=== PATIENT | female | born 1970 | race African-American/Black ===

== ENCOUNTER → 2018-03-27 08:31 | Outpatient (CLI) | payer MEDICAID | END | disposition home or self-care (01) | LOC: D.MRI 08:30 | DX: M25.512 Pain in left shoulder (principal) ==

== ENCOUNTER 2018-10-07 05:34 | Outpatient (CLI) | payer MEDICAID ==
[~2018-10-07] VITALS: Ht 167.6 cm; Wt 103.2 kg
[2018-10-07 06:11] LABS: BASOPHILS 0.3 % (0-2); EOSINOPHILS 0.8 % (0-7); HEMATOCRIT 37.7 % (36.0-48.0); HEMOGLOBIN 13.1 g/dL (12-16); IMMATURE GRANULOCYTES 0.3 % (0-5); LYMPHOCYTES 20.8 % (15-50); MCH 33.9 pg (26.0-34.0); MCHC 34.7 g/dL (31.0-37.0); MCV 97.7 fL (80.0-100.0); MEAN PLATELET VOLUME 11.4 fL (7.4-10.4); MONOCYTES 4.6 % (2-11); NEUTROPHILS 73.2 % (40-80); PLATELET COUNT 105 10x3/uL (130-400); RBC 3.86 10x6/uL (4.00-5.40); RDW 15.6 % (11.5-14.5); WBC 7.6 10x3/uL (4.8-10.8)
[2018-10-07] MEDS ORDERED: ZOLOFT100 MG PO (06:14)
[2018-10-07] MEDS ORDERED: ABILIFY2 MG PO (06:14)
[2018-10-07] MEDS ORDERED: DULCOLAX5 MG PO (06:15)
[2018-10-07] MEDS ORDERED: ZANAFLEX4 MG PO (06:15)
[2018-10-07] MEDS ORDERED: CYMBALTA60 MG PO (06:16)
[2018-10-07] MEDS ORDERED: GLUCOPHAGE500 MG PO (06:16)
[2018-10-07] MEDS ORDERED: GLYBURIDE5 M1 PO (06:17)
[2018-10-07] MEDS ORDERED: METHOTREXATE2.5 MG PO (06:18)
[2018-10-07] MEDS ORDERED: ALBUTEROL SULF8.5 GM INH (06:20)
[2018-10-07 06:23] LABS: ALBUMIN 2.9 g/dL (3.4-5.0); BILIRUBIN - DIRECT 0.34 mg/dL (0.00-0.30); BILIRUBIN - INDIRECT 0.57 mg/dL (0.00-1.00); BILIRUBIN - TOTAL 0.91 mg/dL (0.2-1.3); CHOL - HDL RATIO 2.8 ratio (2.3-4.1); LDL-HDL RATIO 1.5 ratio (1.5-3.5); PROTEIN - SERUM 7.5 g/dL (6.4-8.2)
[2018-10-07 06:28] VITALS: BP 122/74; Ht 167.6 cm; Wt 103.2 kg
[2018-10-07 06:34] LABS: % SATURATION 50 % (15-55); IRON 137 ug/dl (35-150); TOTAL IRON BIND CAPACITY 270 ug/dl (260-445); UNSAT IRON BIND CAPACITY 133 ug/dl (150-375)
[2018-10-07 06:58] LABS: HCG URINE NEGATIVE (NEGATIVE)
[2018-10-07 07:11] LABS: INR 1.37 (0.85-1.17); PROTIME 16.3 SECONDS (11.6-15.0)
[2018-10-07 07:12] LABS: APTT 33.9 SECONDS (22.8-39.4)
[2018-10-07 07:32] LABS: ANION GAP 15.6 mmol/L (8-16); CALCIUM 8.4 mg/dL (8.5-10.1); CARBON DIOXIDE 23.4 mmol/L (21.0-32.0); CREATININE - SERUM 0.9 mg/dL (0.6-1.3)
--- NOTE | 2018-10-07 09:14 | NUR ---
0910 RETURNED TO 2508 BY STRETCHER. SEE POST PROCEDURE CHECKLIST FOR VITAL SIGN TRENDS
--- NOTE | 2018-10-07 09:25 | NUR ---
0920 ADA FINGER FOOD DIET SERVED.
--- NOTE | 2018-10-07 13:06 | NUR ---
PT LEFT UNIT AT THIS TIME VIA WC.
[2018-10-08 09:21] LABS: HAPTOGLOBIN 58 mg/dL (34-200)
[2018-10-08 11:22] LABS: ALPHA FETOPROTEIN -(TUMOR MRK) 8.4 ng/mL (0.0-8.3)
[2018-10-08 14:30] LABS: ANA REFLEX - ANTICHROMATIN ABS <0.2 AI (0.0-0.9); ANA REFLEX - CENTROMERE B ABS <0.2 AI (0.0-0.9); ANA REFLEX - DBL STRANDED DNA <1 IU/mL (0-9); ANA REFLEX - DIRECT Positive (Negative); ANA REFLEX - JO-1 AB <0.2 AI (0.0-0.9); ANA REFLEX - RNP ANTIBODIES <0.2 AI (0.0-0.9); ANA REFLEX - SCL-70 2.6 AI (0.0-0.9); ANA REFLEX - SJOGRENS AB SSA <0.2 AI (0.0-0.9); ANA REFLEX - SJOGRENS AB SSB <0.2 AI (0.0-0.9); ANA REFLEX - SMITH AB <0.2 AI (0.0-0.9)
[2018-10-09 12:20] LABS: MITOCHONDRIAL ANTIBODY 17.2 Units (0.0-20.0); SMOOTH MUSCLE ABS (ACTIN) 35 Units (0-19)
== END 2018-10-07 13:06 | disposition home or self-care (01) ==
LOC: D.SP 05:34 → D.CT 08:00 → D.SP 13:06
PROVIDERS: Internal Medicine Gastroenterology; Specialist
DX: K74.60 Unspecified cirrhosis of liver (principal); Z01.812 Encounter for preprocedural laboratory examination

== ENCOUNTER → 2019-06-08 10:31 | Outpatient (CLI) | payer MEDICAID ==
[2018-10-07 06:28] VITALS: BMI 36.7
[~2019-06-08 10:31] MED LIST: ABILIFY2 MG PO; ALBUTEROL SULF8.5 GM INH; CYMBALTA60 MG PO; DULCOLAX5 MG PO; GLUCOPHAGE500 MG PO; GLYBURIDE5 M1 PO; METHOTREXATE2.5 MG PO; ZANAFLEX4 MG PO; ZOLOFT100 MG PO
[2019-06-08 11:52] LABS: BASOPHILS 0.3 % (0-2); EOSINOPHILS 3.3 % (0-7); HEMATOCRIT 34.9 % (36.0-48.0); HEMOGLOBIN 12.2 g/dL (12-16); IMMATURE GRANULOCYTES 0.2 % (0-5); LYMPHOCYTES 26.9 % (15-50); MCH 32.6 pg (26.0-34.0); MCV 93.3 fL (80.0-100.0); MEAN PLATELET VOLUME 10.4 fL (7.4-10.4); MONOCYTES 6.6 % (2-11); NEUTROPHILS 62.7 % (40-80); PLATELET COUNT 97 10x3/uL (130-400); RBC 3.74 10x6/uL (4.00-5.40); RDW 14.6 % (11.5-14.5); WBC 6.1 10x3/uL (4.8-10.8)
[2019-06-08 12:04] LABS: INR 1.22 (0.85-1.17); PROTIME 14.9 SECONDS (11.6-15.0)
[2019-06-08 12:12] LABS: PLATELET ESTIMATE DECREASED
[2019-06-08 12:27] LABS: ALBUMIN 2.9 g/dL (3.4-5.0); BILIRUBIN - DIRECT 0.15 mg/dL (0.00-0.30); BILIRUBIN - INDIRECT 0.36 mg/dL (0.00-1.00); BILIRUBIN - TOTAL 0.51 mg/dL (0.2-1.3); PROTEIN - SERUM 7.5 g/dL (6.4-8.2)
[2019-06-09 14:09] LABS: ALPHA FETOPROTEIN -(TUMOR MRK) 4.6 ng/mL (0.0-8.3)
== END | disposition home or self-care (01) ==
LOC: D.LAB 10:31 → D.US 11:00
PROVIDERS: ATTEND Internal Medicine Gastroenterology
DX: K74.60 Unspecified cirrhosis of liver (principal)

== ENCOUNTER 2019-09-02 13:50 | Inpatient (IN) | payer MEDICAID ==
[~2019-09-02] VITALS: Ht 167.6 cm; Wt 95.9 kg
--- NOTE | 2019-09-02 14:17 | NUR ---
RECEIVED PATIENT A DIRECT ADMIT. NO C/O PAIN. NO S/S OF ACUTE DISTRESS NOTED. VITALS T98.2, R22, BP144/83, HR60, [id number]% 3L, NC. IV TO LEFT HAND, SL. SITE PATENT 22GA, X1 STICK. DENIES ANY NEEDS AT THIS TIME. CALL LIGHT IN REACH. WILL CONTINUE TO MONITOR.
[2019-09-02 15:35] LABS: BASOPHILS 0.1 % (0-2); EOSINOPHILS 1.2 % (0-7); HEMATOCRIT 32.9 % (36.0-48.0); HEMOGLOBIN 11.2 g/dL (12-16); IMMATURE GRANULOCYTES 0.1 % (0-5); LYMPHOCYTES 23.6 % (15-50); MCH 32.5 pg (26.0-34.0); MCV 95.4 fL (80.0-100.0); MEAN PLATELET VOLUME 10.1 fL (7.4-10.4); MONOCYTES 6.5 % (2-11); NEUTROPHILS 68.5 % (40-80); PLATELET COUNT 113 10x3/uL (130-400); RBC 3.45 10x6/uL (4.00-5.40); RDW 14.1 % (11.5-14.5); WBC 6.8 10x3/uL (4.8-10.8)
[2019-09-02 15:48] LABS: ANION GAP 8.6 mmol/L (8-16); CALCIUM 8.9 mg/dL (8.5-10.1); CARBON DIOXIDE 28.1 mmol/L (21.0-32.0); CREATININE - SERUM 1.3 mg/dL (0.6-1.3); POTASSIUM - SERUM 3.7 mmol/L (3.5-5.1)
[2019-09-02 15:52] LABS: APTT 31.7 SECONDS (22.8-39.4); INR 1.28 (0.85-1.17); PROTIME 15.4 SECONDS (11.6-15.0)
[2019-09-02 15:56] LABS: ALBUMIN 2.7 g/dL (3.4-5.0); BILIRUBIN - TOTAL 0.76 mg/dL (0.2-1.3); PROTEIN - SERUM 7.3 g/dL (6.4-8.2)
[2019-09-02 16:36] VITALS: BP 144/83
[2019-09-02 17:25] LABS: UDS - AMPHET POSITIVE QUAL (NEGATIVE); UDS - BARB NEGATIVE QUAL (NEGATIVE); UDS - BENZO NEGATIVE QUAL (NEGATIVE); UDS - COCAINE NEGATIVE QUAL (NEGATIVE); UDS - OPIATE NEGATIVE QUAL (NEGATIVE); UDS - PCP NEGATIVE QUAL (NEGATIVE); UDS - THC POSITIVE QUAL (NEGATIVE)
--- NOTE | 2019-09-02 18:49 | NUR ---
ALERT AND ORIENTED. DENIES ANY NEEDS AT THIS TIME. CALL LIGHT IN REACH. WILL CONTINUE TO MONITOR.
[2019-09-02 20:01] VITALS: BP 144/83; Ht 167.6 cm; Wt 95.9 kg
[2019-09-02 21:00] VITALS: BP 154/49
--- NOTE | 2019-09-02 21:05 | NUR ---
LYING IN BED. ALERT AND ORIENTED X4. SLOW TO RESPOND TO QUESTIONS. [place]. RESP EVEN AND NONLABORED. SOB WITH EXERTION. O2 @ 3L/NC. BREATH SOUNDS DIMINISHED IN RT LOBES. DENIES PAIN. NONPROD COUGH NOTED. SORES NOTED ALL OVER ARMS. SALINE LOCK NOTED TO LT HAND. AMBULATORY. NO DISTRESS. CL IN REACH.
--- NOTE | 2019-09-02 23:00 | NUR ---
INDIA SHOWER AT THIS TIME.
[2019-09-03] VITALS (7 sets, daily range): BP systolic 122–163; BP diastolic 44–68
[2019-09-03 07:06] LABS: ANION GAP 10.4 mmol/L (8-16); CALCIUM 8.6 mg/dL (8.5-10.1); CARBON DIOXIDE 27.5 mmol/L (21.0-32.0); CREATININE - SERUM 1.3 mg/dL (0.6-1.3); POTASSIUM - SERUM 3.9 mmol/L (3.5-5.1)
[2019-09-03 07:25] LABS: BASOPHILS 0.2 % (0-2); EOSINOPHILS 1.3 % (0-7); HEMATOCRIT 32.3 % (36.0-48.0); HEMOGLOBIN 10.7 g/dL (12-16); IMMATURE GRANULOCYTES 0.2 % (0-5); LYMPHOCYTES 26.7 % (15-50); MCHC 33.1 g/dL (31.0-37.0); MCV 96.7 fL (80.0-100.0); MEAN PLATELET VOLUME 10.7 fL (7.4-10.4); NEUTROPHILS 63.6 % (40-80); PLATELET COUNT 120 10x3/uL (130-400); RBC 3.34 10x6/uL (4.00-5.40); RDW 14.4 % (11.5-14.5); WBC 5.3 10x3/uL (4.8-10.8)
--- NOTE | 2019-09-03 07:41 | NUR ---
PT IS RESTING IN BED WITH EYES OPEN. RESPIRATIONS ARE EVEN AND UNLABORED. PT IS AAO X 4. FAMILY IS AT BEDSIDE. PT DENIES PRESENCE OF N/V. PT REPORTS DIFFICULTY TAKING DEEP BREATHS. LUNG SOUNDS DIMINISHED TO RLL. O2 VIA NC @ 2L. BED IS IN THE LOWEST POSITION. CALL LIGHT AND BEDSIDE TABLE ARE WITHIN REACH. SIDE RAILS X 2. PT DENIES FURTHER NEEDS. WILL CONT TO MONITOR.
--- NOTE | 2019-09-03 08:31 | NUR ---
PT TRANSPORTED OFF FLOOR VIA BED FOR PROCEDURE.
[2019-09-03 08:45] LABS: APTT 34.4 SECONDS (22.8-39.4); INR 1.27 (0.85-1.17); PROTIME 15.3 SECONDS (11.6-15.0)
--- NOTE | 2019-09-03 09:45 | NUR ---
PT RETURNS TO ROOM VIA BED. PT IS AAO X 4. DRESSING TO RIGHT SIDE IS CDI. VSS. SEE FLOWSHEET. FAMILY IS AT BEDSIDE. PT DENIES PRESENCE OF PAIN/N/V. BED IS IN THE LOWEST POSITION. CALL LIGHT AND BEDSIDE TABLE ARE WITHIN REACH. SIDE RAILS X 2. PT DENIES FURTHER NEEDS. WILL CONT TO MONITOR.
[2019-09-03 11:59] LABS: PROTEIN - BODY FLUID 1.5 G/DL
[2019-09-03 13:32] LABS: EOS BF 1 %; MACROPHAGES BF 20 %; MESOTHELIALS BF 11 %; NEUT - BF 38 %
--- NOTE | 2019-09-03 20:05 | NUR ---
LYING IN BED. ALERT AND ORIENTED X4. DENIES PAIN. RESP NONLABORED. STATES SHE FEELS BETTER AFTER THORACENTESIS. O2 @ 3L/NC. BBS CTA BUT SLIGHTLY DIMINISHED IN RT LOBES. [place]. SALINE LOCK NOTED TO LT HAND. NONPROD COUGH. NO DISTRESS. CL IN REACH.
[2019-09-04 00:16] VITALS: BP 132/59
--- NOTE | 2019-09-04 02:42 | NUR ---
RESTING WITH EYES CLOSED. RESP EVEN AND NONLABORED. NO DISTRESS. CL IN REACH.
[2019-09-04 05:07] VITALS: BP 138/49
[2019-09-04 05:58] LABS: BASOPHILS 0.2 % (0-2); EOSINOPHILS 1.3 % (0-7); HEMATOCRIT 30.8 % (36.0-48.0); HEMOGLOBIN 10.4 g/dL (12-16); IMMATURE GRANULOCYTES 0.2 % (0-5); LYMPHOCYTES 24.6 % (15-50); MCH 32.3 pg (26.0-34.0); MCHC 33.8 g/dL (31.0-37.0); MCV 95.7 fL (80.0-100.0); MONOCYTES 6.1 % (2-11); NEUTROPHILS 67.6 % (40-80); PLATELET COUNT 111 10x3/uL (130-400); RBC 3.22 10x6/uL (4.00-5.40); RDW 13.9 % (11.5-14.5); WBC 5.3 10x3/uL (4.8-10.8)
[2019-09-04 06:34] LABS: CALCIUM 8.1 mg/dL (8.5-10.1); CARBON DIOXIDE 27.8 mmol/L (21.0-32.0); CREATININE - SERUM 1.4 mg/dL (0.6-1.3); POTASSIUM - SERUM 3.8 mmol/L (3.5-5.1)
[2019-09-04 08:46] VITALS: BP 157/687
[2019-09-04 12:45] VITALS: BP 135/81
[2019-09-04] MEDS ORDERED: PLAQUENIL PO (14:11)
--- NOTE | 2019-09-04 14:34 | MORECARE ---
CASE MANAGEMENT DISCHARGE SUMMARY PATIENT: DEBBIE FIERRO UNIT: [id number] ADM DATE: 09/02/19 AGE: 49 : 68 SEX: F ROOM/BED: D.2225 AUTHOR: BETTINA ALTMAN PHYSICIAN: REFERRING PHYSICIAN: SLIM IQBAL MD DATE OF SERVICE: 09/04/19 Discharge Plan Patient Name: DEBBIE FIERRO Facility: [facility]:[place] : 1970 Planned Disposition: Home Anticipated Discharge Date: Discharge Date: Expected LOS: Initial Reviewer: [email or web address] Initial Review Date: 09/04/2019 Generated: 09/04/19 3:34 pm Comments DCP- Discharge Planning Updated by [email or web address]: Rsoalie Gold on 09/04/19 1:[address] Patient Name: DEBBIE FIERRO Admission Status: Elective Accout number: [id number] Admission Date: 09-02-2019 : 1970 Admission Diagnosis: Attending: SLIM ZARAGOZA Current LOS: 2 Anticipated DC Date: Planned Disposition: Home Primary Insurance: [place] [employer] [place] Discharge Planning Comments: CM met with patient at bedside after explaining CM role and obtaining verbal consent. CM discussed availability / needs of home health, REHAB and medical equipment. PATIENT DENIES ANY DISCHARGE NEEDS. FAMILY IS HERE TO TRANSPORT HOME. Rock Star: Rosalie Gold Patient Name: DEBBIE FIERRO Page [phone] at 1434 All edits/amendments must be made on the electronic document DICTATION DATE: 09/04/19 1433 VELVET CUTTER: DOV 09/04/19 1433 RPT#: [id number] DC DATE: STATUS: ADM IN [facility] [address] [place] [address] END OF REPORT
--- NOTE | 2019-09-04 15:25 | NUR ---
PATIENT IV REMOVED WITH CATH TIP INTACT. WAITING TO GO HOME. WAITING ON PULMONARY TO CALL BACK FOR ORDERS.
--- NOTE | 2019-09-04 15:30 | NUR ---
SPOKE WITH ROSIE BAILEY ABOUT PATIENT BEING DC'D. PATIENT WANTING TO GO AND UNABLE TO GET PULMONARY TO CALL BACK. ROSIE STATED OK TO GO AT THIS TIME.
--- NOTE | 2019-09-04 15:50 | NUR ---
PATIENT RECIEVED DC INSTRUCTIONS. VERBALIZED UNDERSTANDING. CALLED SHAHRIARL INTO [facility] [address] REQUESTED BY PATIENT. NO QUESTIONS AT THIS TIME. AMBULATED OUT OF HOSPITAL WITH PERSONAL BELONGINGS ASSISTED BY FAMILY. REFUSED WC AT THIS TIME.
--- NOTE | 2019-09-05 16:25 | MORECARE ---
CASE MANAGEMENT DISCHARGE SUMMARY PATIENT: DEBBIE FIERRO UNIT: [id number] ADM DATE: 09/02/19 AGE: 49 : 68 SEX: F ROOM/BED: D.2225 AUTHOR: BETTINA ALTMAN PHYSICIAN: REFERRING PHYSICIAN: SLIM IQBAL MD DATE OF SERVICE: 09/05/19 Discharge Plan Patient Name: DEBBIE FIERRO Facility: [facility]:[place] : 1970 Planned Disposition: Home Anticipated Discharge Date: Discharge Date: 09/04/2019 Expected LOS: Initial Reviewer: [email or web address] Initial Review Date: 09/04/2019 Generated: 09/05/19 5:24 pm Comments DCP- Discharge Planning Updated by [email or web address]: Rosalie Gold on 09/04/19 1:[address] Patient Name: DEBBIE FIERRO Admission Status: Elective Accout number: [id number] Admission Date: 09-02-2019 : 1970 Admission Diagnosis: Attending: SLIM ZARAGOZA Current LOS: 2 Anticipated DC Date: Planned Disposition: Home Primary Insurance: [place] [employer] [place] Discharge Planning Comments: CM met with patient at bedside after explaining CM role and obtaining verbal consent. CM discussed availability / needs of home health, REHAB and medical equipment. PATIENT DENIES ANY DISCHARGE NEEDS. FAMILY IS HERE TO TRANSPORT HOME. Natural Gas Basis Trader: Rosalie Curiel DP export: 09/04/19 1:34 p Patient Name: DEBBIE FIERRO Page [phone] at 1625 All edits/amendments must be made on the electronic document DICTATION DATE: 09/05/191623 PARCEL POST CLERK: DOV 09/05/191623 RPT#: [id number] DC DATE:09/04/19 STATUS: DIS IN [facility] [address] [facility] [place] [address] END OF REPORT
== END 2019-09-04 16:09 | disposition home or self-care (01) | DRG 186 ==
LOC: D.MS 13:50
PROVIDERS: General Practice; Internal Medicine Nephrology; ADMIT Family Medicine; ATTEND Family Medicine
PROC: 0W993ZZ Drainage of Right Pleural Cavity, Percutaneous Approach (ICD-10-PCS; principal; 2019-09-03 08:51)
DX: J90 Pleural effusion, not elsewhere classified (principal); J18.1 Lobar pneumonia, unspecified organism; E11.9 Type 2 diabetes mellitus without complications; I10 Essential (primary) hypertension; F41.8 Other specified anxiety disorders; F12.10 Cannabis abuse, uncomplicated; Z72.0 Tobacco use; M06.9 Rheumatoid arthritis, unspecified; F15.19 Other stimulant abuse with unspecified stimulant-induced disorder

== ENCOUNTER 2019-09-14 13:07 | Inpatient (IN) | payer MEDICAID ==
[~2019-09-14] VITALS: Ht 167.6 cm; Wt 92.1 kg
[~2019-09-14 13:07] MED LIST changes: +PLAQUENIL PO
[2019-09-14 15:28] LABS: BASOPHILS 0.1 % (0-2); EOSINOPHILS 0.7 % (0-7); HEMATOCRIT 36.2 % (36.0-48.0); IMMATURE GRANULOCYTES 0.1 % (0-5); LYMPHOCYTES 16.6 % (15-50); MCH 32.4 pg (26.0-34.0); MCHC 33.1 g/dL (31.0-37.0); MCV 97.8 fL (80.0-100.0); MEAN PLATELET VOLUME 10.5 fL (7.4-10.4); MONOCYTES 7.6 % (2-11); NEUTROPHILS 74.9 % (40-80); RDW 13.9 % (11.5-14.5); WBC 7.4 10x3/uL (4.8-10.8)
[2019-09-14 15:35] LABS: PLATELET COUNT 143 10x3/uL (130-400)
--- NOTE | 2019-09-14 15:47 | NUR ---
PATIENT DIRECT ADMIT FROM DR HERNANDEZ OFFICE WITH LARGE PLEURAL EFFUSION. DECREASED BREATH SOUNDS TO RIGHT. PATIENT ADMITTED EARLIER THIS MONTH TO SAME DIAGNOSIS. IV STARTED TO RIGHT FOREARM 20G X 1 STICK. PATIENT TOLERATED WELL.
[2019-09-14 15:48] LABS: APTT 32.8 SECONDS (22.8-39.4); INR 1.31 (0.85-1.17); PROTIME 15.7 SECONDS (11.6-15.0)
[2019-09-14 15:53] VITALS: BP 145/74; BMI 32.8
[2019-09-14 16:12] LABS: ALBUMIN 2.7 g/dL (3.4-5.0); ANION GAP 11.9 mmol/L (8-16); BILIRUBIN - TOTAL 0.98 mg/dL (0.2-1.3); CALCIUM 8.5 mg/dL (8.5-10.1); CARBON DIOXIDE 25.1 mmol/L (21.0-32.0); CREATININE - SERUM 1.6 mg/dL (0.6-1.3); PROTEIN - SERUM 7.2 g/dL (6.4-8.2)
[2019-09-14 16:27] VITALS: BP 145/74
[2019-09-14 19:10] LABS: UDS - AMPHET POSITIVE QUAL (NEGATIVE); UDS - BARB NEGATIVE QUAL (NEGATIVE); UDS - BENZO NEGATIVE QUAL (NEGATIVE); UDS - COCAINE NEGATIVE QUAL (NEGATIVE); UDS - OPIATE NEGATIVE QUAL (NEGATIVE); UDS - PCP NEGATIVE QUAL (NEGATIVE); UDS - THC POSITIVE QUAL (NEGATIVE)
[2019-09-14 19:29] LABS: APPEARANCE CLEAR (CLEAR); BILIRUBIN NEGATIVE (NEGATIVE); COLOR YELLOW (YELLOW); GLUCOSE 250 mg/dL (NEGATIVE); KETONE NEGATIVE (NEGATIVE); NITRITE NEGATIVE (NEGATIVE); PROTEIN 1+ mg/dL (NEGATIVE); SPECIFIC GRAVITY 1.025 (1.005-1.020); UROBILINOGEN NORMAL (NORMAL)
[2019-09-14 19:30] LABS: RED CELLS - URINE 0-5 /hpf (0-5); WHITE CELLS - URINE 0-5 /hpf (NEGATIVE)
[2019-09-14 19:31] LABS: BACTERIA MODERATE /hpf (NEGATIVE); MUCUS <1+ /lpf (NONE SEEN)
--- NOTE | 2019-09-14 20:30 | NUR ---
PT SITTING UP IN BED WITHOUT DISTRESS, AOX4. DENIES PAIN OR NEEDS. IV RIGHT FA SL, FLUSHES EASILY. REMINDED PT SHE IS NPO AFTER MN, VERBALIZED UNDERSTANDING. BS 216, REFUSED INSULIN. CL IN REACH, WILL CTM
[2019-09-14 20:40] VITALS: BP 156/72
[2019-09-15] VITALS (7 sets, daily range): BP systolic 129–146; BP diastolic 58–80; Ht 167.6 cm; Wt 92.1 kg
[2019-09-15 06:36] LABS: BASOPHILS 0.2 % (0-2); EOSINOPHILS 1.6 % (0-7); HEMOGLOBIN 12.2 g/dL (12-16); IMMATURE GRANULOCYTES 0.1 % (0-5); LYMPHOCYTES 31.7 % (15-50); MCH 32.4 pg (26.0-34.0); MCHC 33.9 g/dL (31.0-37.0); MEAN PLATELET VOLUME 10.3 fL (7.4-10.4); MONOCYTES 6.7 % (2-11); NEUTROPHILS 59.7 % (40-80); PLATELET COUNT 158 10x3/uL (130-400); RBC 3.76 10x6/uL (4.00-5.40); RDW 13.8 % (11.5-14.5); WBC 8.2 10x3/uL (4.8-10.8)
[2019-09-15 06:48] LABS: ANION GAP 10.8 mmol/L (8-16); CALCIUM 8.5 mg/dL (8.5-10.1); CREATININE - SERUM 1.4 mg/dL (0.6-1.3); POTASSIUM - SERUM 3.8 mmol/L (3.5-5.1)
[2019-09-15 06:57] LABS: APTT 31.3 SECONDS (22.8-39.4); INR 1.26 (0.85-1.17); PROTIME 15.3 SECONDS (11.6-15.0)
[2019-09-15 07:01] LABS: MCV 95.7 fL (80.0-100.0)
--- NOTE | 2019-09-15 07:58 | NUR ---
PT IS RESTING IN BED WITH EYES OPEN. RESPIRATIONS ARE EVEN AND UNLABORED. PT IS AAO X 4. FAMILY AT BEDSIDE. PT DENIES PRESENCE OF PAIN/N/V AT THIS TIME. PT DENIES PRESENCE OF DYSPNEA. BED IS IN THE LOWEST POSITION. CALL LIGHT AND BEDSIDE TABLE ARE WITHIN REACH. SIDE RAILS X 2. PT DENIES FURTHER NEEDS. WILL CONT TO MONITOR.
--- NOTE | 2019-09-15 08:27 | NUR ---
PT TRANSPORTED FROM ROOM VIA BED FOR PROCEDURE.
--- NOTE | 2019-09-15 09:33 | NUR ---
PT RETURNS TO ROOM VIA BED. FAMILY IS AT BEDSIDE. PT IS AAO X 4. VSS. SEE FLOWSHEET. PT DENIES PRESENCE OF PAIN/N/V/DYSPNEA. PT STATES THAT SHE FEELS "MUCH BETTER". PT DENIES FURTHER NEEDS. BED IS IN THE LOWEST POSITION. CALL LIGHT AND BEDSIDE TABLE ARE WITHIN REACH. SIDE RAILS X 2. WILL CONT TO MONITOR.
[2019-09-15 15:41] LABS: PROTEIN - BODY FLUID 1.1 G/DL
--- NOTE | 2019-09-15 16:47 | MORECARE ---
CASE MANAGEMENT DISCHARGE SUMMARY PATIENT: DEBBIE FIERRO UNIT: [id number] ADM DATE: 09/14/19 AGE: 49 : 68 SEX: F ROOM/BED: D.[facility]6 AUTHOR: BETTINA ALTMAN PHYSICIAN: REFERRING PHYSICIAN: REGLA BAKER MD DATE OF SERVICE: 09/15/19 Discharge Plan Patient Name: DEBBIE FIERRO Facility: [facility]:[place] : 1970 Planned Disposition: Home Anticipated Discharge Date: 09/16/19 Discharge Date: Expected LOS: 2 Initial Reviewer: [email or web address] Initial Review Date: 09/15/2019 Generated: 09/15/19 5:47 pm Patient Name: DEBBIE FIERRO Page [id number] at 1647 All edits/amendments must be made on the electronic document DICTATION DATE: 09/15/191646 BENZOL STILL OPERATOR: DOV 09/15/191646 RPT#: [id number] DC DATE: STATUS: ADM IN [facility] [address] [place] [address] END OF REPORT
--- NOTE | 2019-09-15 16:55 | MORECARE ---
CASE MANAGEMENT DISCHARGE SUMMARY PATIENT: DEBBIE FIERRO UNIT: [id number] ADM DATE: 09/14/19 AGE: 49 : [birth year] SEX: F ROOM/BED: D.2236 AUTHOR: AGAPITO,DOC PHYSICIAN: REFERRING PHYSICIAN: REGLA BAKER MD DATE OF SERVICE: 09/15/19 Discharge Plan Patient Name: DEBBIE FIERRO Facility: [facility]:[place] : 1970 Planned Disposition: Home Anticipated Discharge Date: 09/16/19 Discharge Date: Expected LOS: 2 Initial Reviewer: [email or web address] Initial Review Date: 09/15/2019 Generated: 09/15/19 5:54 pm Comments DCP- Discharge Planning Updated by [email or web address]: Yancy Stoddard on 09/15/19 3:[address] Patient Name: DEBBIE FIERRO Admission Status: Elective Accout number: [id number] Admission Date: 09-14-2019 : 1970 Admission Diagnosis: Attending: SAMUEL, Current LOS: 1 Anticipated DC Date: 09-16-2019 Planned Disposition: Home [place] Insurance: [place] [employer] [place] Discharge Planning Comments: CM met with patient to complete initial dc planning assessment, patient family is in the room and verbal permission received to discuss discharge planning with significant other, mother and daughter in room. CM educated patient on the CM role and verbal consent given by patient to complete assessment. Patient lives at home with her significant other (Matthieu). At discharge patient plans to return and feels this is a safe discharge. CM discussed availability of home health, rehab services, and medical equipment. Patient denied known discharge needs at this time. States Matthieu will drive her home. CM will continue to follow and will assist as needed with dc plans/needs. Medical Records Manager: Yancy Stoddard DCPIA - Discharge Planning Initial Assessment Updated by [email or web address]: Yancy Stoddard on 09/15/19 4:47 pm * Is the patient Alert and Oriented? Yes * How many steps to enter\exit or inside your home? 3/0 * PCP Dr. Bronson * Pharmacy [facility] [address] * Preadmission Environment Home with Family * ADLs Independent * Equipment None * List name and contact numbers for known caregivers / representatives who currently or will assist patient after discharge: Matthieu Agustin - Significant Other - [phone] Mili Lima - mother - [phone] * Verbal permission to speak to the caregivers and representatives has been obtained from the patient. Yes * Community resources currently utilized None * Additional services required to return to the preadmission environment? No * Can the patient safely return to the preadmission environment? Yes * Has this patient been hospitalized within the prior 30 days at any hospital? Yes Last DP export: 09/15/19 3:47 Patient Name: DEBBIE FIERRO Page [id number] at 1655 All edits/amendments must be made on the electronic document DICTATION DATE: 09/15/191653 ARRESTING GEAR OPERATOR: DOV 09/15/191653 RPT#: [id number] DC DATE: STATUS: ADM IN [facility] [address] [place] [address] END OF REPORT
[2019-09-15 17:29] LABS: EOS BF 2 %; MACROPHAGES BF 1 %; NEUT - BF 15 %
[2019-09-15 20:07] LABS: HEPATITIS C ANTIBODY <0.1 S/CO RAT (0.0-0.9)
[2019-09-16 00:19] VITALS: BP 145/63
--- NOTE | 2019-09-16 01:06 | NUR ---
ALERT AND ORENTED ABLE TO VOICE NEEDS AND WANTS TO STAFF. UP AT YUNIOR. FSBS 229 REFUSED SLIDING SCALE. IV TO RIGHT FA DICK LOCK. TELEMTERY IN PLACE 61 SR. CALL LIGHT AND WATER IN REARCH.
[2019-09-16 01:26] VITALS: BP 145/63
[2019-09-16 05:20] VITALS: BP 130/67
[2019-09-16 07:34] LABS: BASOPHILS 0.2 % (0-2); EOSINOPHILS 1.2 % (0-7); HEMATOCRIT 32.9 % (36.0-48.0); HEMOGLOBIN 10.9 g/dL (12-16); IMMATURE GRANULOCYTES 0.2 % (0-5); LYMPHOCYTES 24.9 % (15-50); MCH 31.7 pg (26.0-34.0); MCHC 33.1 g/dL (31.0-37.0); MCV 95.6 fL (80.0-100.0); MEAN PLATELET VOLUME 10.7 fL (7.4-10.4); MONOCYTES 8.2 % (2-11); NEUTROPHILS 65.3 % (40-80); RBC 3.44 10x6/uL (4.00-5.40); RDW 13.7 % (11.5-14.5)
--- NOTE | 2019-09-16 07:45 | NUR ---
PT IS RESTING IN BED WITH EYES CLOSED. RESPIRATIONS ARE EVEN AND UNLABORED. PT IS EASILY AROUSED WITH VERBAL STIMULATION. PT IS AAO X 4 UPON AROUSAL. DRESSING TO RIGHT SIDE/BACK IS CDI. PT DENIES PRESENCE OF PAIN/DYSPNEA/N/V. RML AND RLL ARE DIMINISHED. BED IS IN THE LOWEST POSITION. CALL LIGHT AND BEDSIDE TABLE ARE WITHIN REACH. SIDE RAILS X 2. PT DENIES FURTHER NEEDS. WILL CONT TO MONITOR.
[2019-09-16 07:46] LABS: PLATELET COUNT 126 10x3/uL (130-400); WBC 6.1 10x3/uL (4.8-10.8)
[2019-09-16 07:53] LABS: ANION GAP 9.3 mmol/L (8-16); CALCIUM 8.3 mg/dL (8.5-10.1); CARBON DIOXIDE 26.7 mmol/L (21.0-32.0); CREATININE - SERUM 1.4 mg/dL (0.6-1.3); PROTEIN - SERUM 6.2 g/dL (6.4-8.2)
[2019-09-16 10:53] VITALS: BP 100/55
[2019-09-16 12:45] VITALS: BP 126/72
[2019-09-16 14:10] LABS: ACID FAST SMEAR Negative (()); AFB SPECIMEN PROCESSING Concentration (())
[2019-09-16] MEDS ORDERED: ALDACTONE25 MG PO (16:30)
[2019-09-16] MEDS ORDERED: LASIX40 MG PO (16:31)
--- NOTE | 2019-09-16 16:59 | NUR ---
PT REFUSING FINGERSTICK FOR GLUCOSE MONITORING DUE TO DISCHARGE.
[2019-09-16 17:32] VITALS: BP 162/95
--- NOTE | 2019-09-16 17:46 | NUR ---
ALLDISCHARGE INSTRUCTIONS COVERED WITH PT AND PT SPOUSE. PT DENIES ANY FURTHER QUESTIONS/NEEDS/CONCERNS/ ALL DISCHARGE PAPERS SIGNED. PIV TO RIGHT WRIST REMOVED WITH CATHETER TIP INTACT. DRESSING APPLIED. ALL SIGNED DISCHARGE PAPERS PLACED IN PT CHART.
--- NOTE | 2019-09-16 17:48 | NUR ---
PT REFUSES WHEELCHAIR ASSISTANCE FOR TRANSPORTATION OUT OF ROOM. PT AMBULATES OUT OF ROOM AND THANKS ME FOR CARE GIVEN DURING THIS SHIFT.
[2019-09-17 10:10] LABS: FUNGUS STAIN Final report (())
--- NOTE | 2019-09-17 14:16 | MORECARE ---
CASE MANAGEMENT DISCHARGE SUMMARY PATIENT: DEBBIE FIERRO UNIT: [id number] ADM DATE: 09/14/19 AGE: 49 : 68 SEX: F ROOM/BED: D.2236 AUTHOR: AGAPITO,DOC PHYSICIAN: REFERRING PHYSICIAN: CADEN PAREDES MD DATE OF SERVICE: 09/17/19 Discharge Plan Patient Name: DEBBIE FIERRO Facility: [facility]:[place] : 1970 Planned Disposition: Home Anticipated Discharge Date: 09/16/19 Discharge Date: 09/16/2019 Expected LOS: 2 Initial Reviewer: [email or web address] Initial Review Date: 09/15/2019 Generated: 09/17/19 3:15 pm DCP- Discharge Planning Updated by [email or web address]: Yancy Stoddard on 09/15/19 3:[address] Patient Name: DEBBIE FIERRO Admission Status: Elective Accout number: [id number] Admission Date: 09-14-2019 : 1970 Admission Diagnosis: Attending: SAMUEL Current LOS: 1 Anticipated DC Date: 09-16-2019 Planned Disposition: Home Primary Insurance: [facility] PRIVATE OPTIONS KIM Discharge Planning Comments: CM met with patient to complete initial dc planning assessment, patient family is in the room and verbal permission received to discuss discharge planning with significant other, mother and daughter in room. CM educated patient on the CM role and verbal consent given by patient to complete assessment. Patient lives at home with her significant other (Matthieu). At discharge patient plans to return and feels this is a safe discharge. CM discussed availability of home health, rehab services, and medical equipment. Patient denied known discharge needs at this time. States Matthieu will drive her home. CM will continue to follow and will assist as needed with dc plans/needs. Baseball Inspector: Yancy Stoddard DCPIA - Discharge Planning Initial Assessment Updated by [email or web address]: Yancy Stoddard on 09/15/19 4:47 pm * Is the patient Alert and Oriented? Yes * How many steps to enter\exit or inside your home? 3/0 * PCP Dr. Bronson * Pharmacy [facility] [address] * Preadmission Environment Home with Family * ADLs Independent * Equipment None * List name and contact numbers for known caregivers / representatives who currently or will assist patient after discharge: Matthieu Agustin - Significant Other - [phone] Mili Lima - mother - [phone] * Verbal permission to speak to the caregivers and representatives has been obtained from the patient. Yes * Community resources currently utilized None * Additional services required to return to the preadmission environment? No * Can the patient safely return to the preadmission environment? Yes * Has this patient been hospitalized within the prior 30 days at any hospital? Yes Last DP export: 09/15/19 3:55 Patient Name: DEBBIE FIERRO Page [id number] at 1416 All edits/amendments must be made on the electronic document DICTATION DATE: 09/17/191414 SPANISH INSTRUCTOR: DOV 09/17/191414 RPT#: [id number] DC DATE:09/16/19 STATUS: DIS IN [facility] [address] [place] [address] END OF REPORT
[2019-09-20 13:09] LABS: FUNGUS MYCOLOGY CULTURE Preliminary report (())
== END 2019-09-16 17:49 | disposition home or self-care (01) | DRG 186 ==
LOC: D.SDCHOLD 13:07 → D.MS 13:07
PROVIDERS: Family Medicine; Internal Medicine Nephrology; Internal Medicine Pulmonary Disease; Radiology Diagnostic Radiology; ADMIT Family Medicine; ATTEND Family Medicine
PROC: 0W993ZZ Drainage of Right Pleural Cavity, Percutaneous Approach (ICD-10-PCS; principal; 2019-09-15 08:30)
DX: J90 Pleural effusion, not elsewhere classified (principal); J96.01 Acute respiratory failure with hypoxia; F17.203 Nicotine dependence unspecified, with withdrawal; N17.9 Acute kidney failure, unspecified; E87.1 Hypo-osmolality and hyponatremia; J44.1 Chronic obstructive pulmonary disease with (acute) exacerbation; F19.10 Other psychoactive substance abuse, uncomplicated; K74.60 Unspecified cirrhosis of liver; F41.8 Other specified anxiety disorders; I10 Essential (primary) hypertension; E11.40 Type 2 diabetes mellitus with diabetic neuropathy, unspecified; M06.9 Rheumatoid arthritis, unspecified

== ENCOUNTER 2019-10-12 12:53 | Outpatient (CLI) | payer MEDICAID ==
[~2019-10-12] VITALS: Ht 167.6 cm; Wt 90.9 kg
[~2019-10-12 12:53] MED LIST changes: +ALDACTONE25 MG PO; +LASIX40 MG PO
[2019-10-12] MEDS ORDERED: CYMBALTA60 MG PO (13:36)
[2019-10-12] MEDS ORDERED: FOLIC ACID1 MG PO (13:38)
[2019-10-12] MEDS ORDERED: OMEPRAZOLE40 MG PO (13:38)
[2019-10-12 13:42] LABS: BASOPHILS 0.2 % (0-2); EOSINOPHILS 1.2 % (0-7); HEMATOCRIT 34.6 % (36.0-48.0); HEMOGLOBIN 11.8 g/dL (12-16); LYMPHOCYTES 22.1 % (15-50); MCH 32.1 pg (26.0-34.0); MCHC 34.1 g/dL (31.0-37.0); MEAN PLATELET VOLUME 10.1 fL (7.4-10.4); MONOCYTES 7.1 % (2-11); NEUTROPHILS 69.4 % (40-80); PLATELET COUNT 105 10x3/uL (130-400); RBC 3.68 10x6/uL (4.00-5.40); RDW 13.3 % (11.5-14.5)
[2019-10-12 13:48] VITALS: Ht 167.6 cm; Wt 90.9 kg
[2019-10-12 13:56] LABS: INR 1.21 (0.85-1.17); PROTIME 15.2 SECONDS (11.6-15.0)
[2019-10-12 13:57] LABS: HCG SERUM NEGATIVE (NEGATIVE)
[2019-10-12 13:58] LABS: ANION GAP 9.5 mmol/L (8-16); CALCIUM 8.6 mg/dL (8.5-10.1); CARBON DIOXIDE 29.7 mmol/L (21.0-32.0); CREATININE - SERUM 1.6 mg/dL (0.6-1.3); POTASSIUM - SERUM 4.2 mmol/L (3.5-5.1)
[2019-10-12 14:01] LABS: APTT 32.3 SECONDS (22.8-39.4)
--- NOTE | 2019-10-12 17:10 | NUR ---
DC INSTRUCTIONS GIVEN TO PT. STATES UNDERSTANDING. DC'D IV CATH FULLY INTACT.
--- NOTE | 2019-10-12 17:15 | NUR ---
PT LEFT UNIT AMBULATING W/ SPOUSE AT 1715
[2019-10-12 18:18] LABS: MACROPHAGES BF 41 %; MESOTHELIALS BF 2 %; NEUT - BF 25 %
== END 2019-10-12 17:15 | disposition home or self-care (01) ==
LOC: D.SP 12:53 → D.CT 14:00 → D.SP 14:00
PROVIDERS: Specialist; ATTEND Family Medicine
DX: J90 Pleural effusion, not elsewhere classified (principal); K74.60 Unspecified cirrhosis of liver

== ENCOUNTER → 2020-02-19 13:21 | Outpatient (CLI) | payer MEDICAID ==
[2019-10-12 13:48] VITALS: BMI 32.3
[~2020-02-19 13:21] MED LIST changes: +FOLIC ACID1 MG PO; +OMEPRAZOLE40 MG PO
== END | disposition home or self-care (01) ==
LOC: D.LABREF 13:21
PROVIDERS: ATTEND Internal Medicine Pulmonary Disease
DX: R06.02 Shortness of breath (principal)

== ENCOUNTER → 2020-02-21 10:29 | Outpatient (CLI) | payer MEDICAID ==
[2019-10-12 13:48] VITALS: BMI 32.3
== END | disposition home or self-care (01) ==
LOC: D.LAB 10:29 → D.RT 11:00
PROVIDERS: ATTEND Internal Medicine Pulmonary Disease
DX: Z09 Encounter for follow-up examination after completed treatment for conditions other than malignant neoplasm (principal)

== ENCOUNTER 2020-03-31 08:13 | Outpatient (CLI) | payer MEDICAID ==
[~2020-03-31] VITALS: Ht 167.6 cm; Wt 88.2 kg
[2020-03-31 08:39] LABS: ANION GAP 10.1 mmol/L (8-16); CALCIUM 9.1 mg/dL (8.5-10.1); CARBON DIOXIDE 23.3 mmol/L (21.0-32.0); POTASSIUM - SERUM 4.4 mmol/L (3.5-5.1)
[2020-03-31 08:41] LABS: APTT 31.1 SECONDS (22.8-39.4); INR 1.3 (0.85-1.17); PROTIME 16.1 SECONDS (11.6-15.0)
[2020-03-31 08:51] VITALS: BP 161/66; Ht 167.6 cm; Wt 88.2 kg
[2020-03-31 08:54] LABS: BASOPHILS 0.1 % (0-2); HEMATOCRIT 33.3 % (36.0-48.0); IMMATURE GRANULOCYTES 0.3 % (0-5); LYMPHOCYTES 15.6 % (15-50); MCH 30.8 pg (26.0-34.0); MCV 93.3 fL (80.0-100.0); MEAN PLATELET VOLUME 10.7 fL (7.4-10.4); MONOCYTES 7.8 % (2-11); NEUTROPHILS 75.2 % (40-80); PLATELET COUNT 103 10x3/uL (130-400); RBC 3.57 10x6/uL (4.00-5.40); RDW 14.2 % (11.5-14.5); WBC 6.8 10x3/uL (4.8-10.8)
[2020-03-31] MEDS ORDERED: ZOLOFT100 MG PO (09:04)
--- NOTE | 2020-03-31 12:25 | NUR ---
1226 ASSISTED TO BATHROOM AND VOIDED. PCXR HERE AND DONE. TOLERATED WELL
--- NOTE | 2020-03-31 13:10 | NUR ---
1245 IV REMOVED AND INSTRUCTIONS GIVEN TO PT. CXR NOTED AND CALLED TO RADIOLOGY DOCTER. ORDERS GIVEN TO GO HOME
== END 2020-03-31 12:52 | disposition home or self-care (01) ==
LOC: D.SP 08:13
PROVIDERS: Specialist; ATTEND Family Medicine
DX: J90 Pleural effusion, not elsewhere classified (principal); K74.60 Unspecified cirrhosis of liver; E78.5 Hyperlipidemia, unspecified; Z79.84 Long term (current) use of oral hypoglycemic drugs; Z72.0 Tobacco use; E11.22 Type 2 diabetes mellitus with diabetic chronic kidney disease; I12.9 Hypertensive chronic kidney disease with stage 1 through stage 4 chronic kidney disease, or unspecified chronic kidney disease; N18.4 Chronic kidney disease, stage 4 (severe); D73.9 Disease of spleen, unspecified; I85.00 Esophageal varices without bleeding; H91.93 Unspecified hearing loss, bilateral

== ENCOUNTER 2020-04-14 19:00 | Outpatient (CLI) | payer MEDICAID ==
[2020-03-31 08:51] VITALS: BMI 31.3
== END 2020-04-14 23:59 | disposition home or self-care (01) ==
LOC: D.MAMMO 19:00
PROVIDERS: ATTEND Family Medicine
DX: Z12.31 Encounter for screening mammogram for malignant neoplasm of breast (principal)

== ENCOUNTER 2020-05-05 14:47 | Emergency (ER) | payer MEDICAID ==
[~2020-05-05] VITALS: Ht 167.6 cm; Wt 81.8 kg
[2020-05-05 14:55] VITALS: Ht 167.6 cm; Wt 81.8 kg
[2020-05-05 15:43] LABS: BASOPHILS 0.2 % (0-2); EOSINOPHILS 0.1 % (0-7); IMMATURE GRANULOCYTES 0.4 % (0-5); LYMPHOCYTES 10.5 % (15-50); MCH 30.1 pg (26.0-34.0); MCHC 33.3 g/dL (31.0-37.0); MCV 90.3 fL (80.0-100.0); MEAN PLATELET VOLUME 9.9 fL (7.4-10.4); MONOCYTES 6.2 % (2-11); NEUTROPHILS 82.6 % (40-80); RDW 14.4 % (11.5-14.5); WBC 12.7 10x3/uL (4.8-10.8)
[2020-05-05 15:49] LABS: HEMOGLOBIN 5.3 g/dL (12-16); RBC 1.76 10x6/uL (4.00-5.40)
[2020-05-05 15:50] LABS: ANION GAP 13.7 mmol/L (8-16); CARBON DIOXIDE 22.5 mmol/L (21.0-32.0); CREATININE - SERUM 3.4 mg/dL (0.6-1.3); HEMATOCRIT 15.9 % (36.0-48.0); PLATELET COUNT 210 10x3/uL (130-400); POTASSIUM - SERUM 4.2 mmol/L (3.5-5.1)
[2020-05-05 15:52] LABS: INR 1.33 (0.85-1.17); PROTIME 16.4 SECONDS (11.6-15.0)
[2020-05-05 15:56] LABS: ALBUMIN 2.8 g/dL (3.4-5.0); BILIRUBIN - TOTAL 0.34 mg/dL (0.2-1.3); PROTEIN - SERUM 6.7 g/dL (6.4-8.2)
[2020-05-05 19:10] VITALS: BP 145/60
== END 2020-05-05 19:10 | disposition other institution (70) ==
LOC: D.ER 14:47
PROVIDERS: Emergency Medicine
DX: K92.2 Gastrointestinal hemorrhage, unspecified (principal); D50.0 Iron deficiency anemia secondary to blood loss (chronic); N17.9 Acute kidney failure, unspecified; I10 Essential (primary) hypertension; E11.9 Type 2 diabetes mellitus without complications; Z72.0 Tobacco use

== ENCOUNTER 2020-05-25 11:32 | Outpatient (CLI) | payer MEDICAID ==
[~2020-05-25] VITALS: Ht 167.6 cm; Wt 81.8 kg
[2020-05-25 12:35] LABS: ANION GAP 14.4 mmol/L (8-16); CARBON DIOXIDE 21.7 mmol/L (21.0-32.0); CREATININE - SERUM 2.6 mg/dL (0.6-1.3); POTASSIUM - SERUM 4.1 mmol/L (3.5-5.1)
[2020-05-25] MEDS ORDERED: GLYBURIDE5 M1 PO (12:38)
[2020-05-25 12:43] VITALS: Ht 167.6 cm; Wt 81.8 kg
[2020-05-25 12:58] LABS: BASOPHILS 0.4 % (0-2); HEMATOCRIT 29.5 % (36.0-48.0); HEMOGLOBIN 9.4 g/dL (12-16); LYMPHOCYTES 21.6 % (15-50); MCH 29.2 pg (26.0-34.0); MCHC 31.9 g/dL (31.0-37.0); MCV 91.6 fL (80.0-100.0); MEAN PLATELET VOLUME 10.1 fL (7.4-10.4); MONOCYTES 4.5 % (2-11); NEUTROPHILS 72.5 % (40-80); RBC 3.22 10x6/uL (4.00-5.40); RDW 14.4 % (11.5-14.5); WBC 4.9 10x3/uL (4.8-10.8)
[2020-05-25 13:08] LABS: HCG SERUM NEGATIVE (NEGATIVE)
[2020-05-25 13:16] LABS: APTT 31.2 SECONDS (22.8-39.4); INR 1.21 (0.85-1.17); PROTIME 15.3 SECONDS (11.6-15.0)
[2020-05-25 13:17] LABS: PLATELET COUNT 137 10x3/uL (130-400)
--- NOTE | 2020-05-25 17:18 | NUR ---
1640 CXR DONE AND TOLERATED WELL. 1720 IV REMOVED INSTRUCTIONS GIVEN TO PT. 1710 CXR NOTED
== END 2020-05-25 17:25 | disposition home or self-care (01) ==
LOC: D.SP 11:32 → D.CT 14:00 → D.SP 17:25
PROVIDERS: General Practice; ATTEND Family Medicine
DX: J90 Pleural effusion, not elsewhere classified (principal)

== ENCOUNTER 2020-06-07 06:35 | Day surgery (SDC) | payer MEDICAID ==
[~2020-06-07] VITALS: Ht 167.6 cm; Wt 81.8 kg
[2020-06-07 07:02] LABS: BASOPHILS 0.3 % (0-2); EOSINOPHILS 1.7 % (0-7); HEMATOCRIT 31.7 % (36.0-48.0); HEMOGLOBIN 9.9 g/dL (12-16); LYMPHOCYTES 17.8 % (15-50); MCHC 31.2 g/dL (31.0-37.0); MCV 89.5 fL (80.0-100.0); MEAN PLATELET VOLUME 9.8 fL (7.4-10.4); MONOCYTES 6.2 % (2-11); RBC 3.54 10x6/uL (4.00-5.40); RDW 14.5 % (11.5-14.5); WBC 6.3 10x3/uL (4.8-10.8)
[2020-06-07 07:04] LABS: PLATELET COUNT 169 10x3/uL (130-400)
[2020-06-07 07:20] VITALS: BP 148/79; Ht 167.6 cm; Wt 81.8 kg
[2020-06-07 07:27] LABS: ALBUMIN 3.3 g/dL (3.4-5.0); ANION GAP 12.8 mmol/L (8-16); BILIRUBIN - TOTAL 0.26 mg/dL (0.2-1.3); CALCIUM 9.1 mg/dL (8.5-10.1); CARBON DIOXIDE 25.6 mmol/L (21.0-32.0); CREATININE - SERUM 3.1 mg/dL (0.6-1.3); POTASSIUM - SERUM 4.4 mmol/L (3.5-5.1); PROTEIN - SERUM 8.7 g/dL (6.4-8.2)
[2020-06-07 08:14] LABS: APTT 31.8 SECONDS (22.8-39.4); INR 1.12 (0.85-1.17); PROTIME 14.3 SECONDS (11.6-15.0)
--- NOTE | 2020-06-07 12:14 | NUR ---
1205 CXR W/O PNEUMOTHORAX. DRSG CDI. IV D/C'D WITH CANNULA INTACT, PRESSURE HELD, DRSG PLACED. DISCHARGE INSTRUCTIONS GIVEN AND PT VERBALIZED AN UNDERSTANDING. DISCHARGED W/O C/O
== END 2020-06-07 12:05 | disposition home or self-care (01) ==
LOC: D.CT 06:35
PROVIDERS: General Practice; ATTEND Family Medicine
DX: J90 Pleural effusion, not elsewhere classified (principal)

== ENCOUNTER 2020-06-15 06:30 | Day surgery (SDC) | payer MEDICAID ==
[~2020-06-15] VITALS: Ht 167.6 cm; Wt 81.8 kg
[2020-06-15 06:49] LABS: BASOPHILS 0.2 % (0-2); EOSINOPHILS 1.5 % (0-7); HEMATOCRIT 28.8 % (36.0-48.0); HEMOGLOBIN 9.1 g/dL (12-16); IMMATURE GRANULOCYTES 0.4 % (0-5); LYMPHOCYTES 14.5 % (15-50); MCH 27.7 pg (26.0-34.0); MCHC 31.6 g/dL (31.0-37.0); MCV 87.5 fL (80.0-100.0); MEAN PLATELET VOLUME 10.2 fL (7.4-10.4); MONOCYTES 6.9 % (2-11); NEUTROPHILS 76.5 % (40-80); PLATELET COUNT 159 10x3/uL (130-400); RBC 3.29 10x6/uL (4.00-5.40); RDW 14.9 % (11.5-14.5); WBC 8.5 10x3/uL (4.8-10.8)
[2020-06-15 07:06] LABS: APTT 31.6 SECONDS (22.8-39.4); INR 1.23 (0.85-1.17); PROTIME 15.4 SECONDS (11.6-15.0)
[2020-06-15 07:08] LABS: ANION GAP 13.9 mmol/L (8-16); CALCIUM 8.8 mg/dL (8.5-10.1); CARBON DIOXIDE 22.2 mmol/L (21.0-32.0); CREATININE - SERUM 2.8 mg/dL (0.6-1.3); POTASSIUM - SERUM 4.1 mmol/L (3.5-5.1)
--- NOTE | 2020-06-15 07:34 | NUR ---
BLOOD GLUCOSE 43, NOTIFIED SPECIALS INSTRUCTED TO CALL ATTENDING PHYSICIAN. NO ANSWERING SERVICE FOR THIS PROVIDER.
[2020-06-15 07:59] VITALS: BP 160/73; Ht 167.6 cm; Wt 81.8 kg
--- NOTE | 2020-06-15 08:10 | NUR ---
0814 PT IS REQUESTING A DRAINING TUBE BE PLACED TODAY TO AVOID RETURNING TO HOSPITAL EVERY FEW DAYS. BRIELLE ROSEN RN HERE TO VERIFY THIS REQUEST AND TO GET PREAUTHORIZATION. PROCEDURE ADDED TO PERMIT AND PT INITIALED IT.
[2020-06-15 08:42] LABS: HCG URINE NEGATIVE (NEGATIVE)
--- NOTE | 2020-06-15 10:38 | NUR ---
1035 BRIELLE ROSEN, RN AT BEDSIDE TEACHING PATIENT HOW TO USE PLEURX DRAIN AT HOME.
--- NOTE | 2020-06-15 12:39 | NUR ---
1000 VS ARE BEING RECORDED ON POST PROCEDURE FORM IN PAPER CHART. 1205 IV DC'D. CATHETER TIP INTACT. NO BLEEDING AT SITE. BANDAID APPLIED.
== END 2020-06-15 12:22 | disposition home or self-care (01) ==
LOC: D.SP 06:30 → D.CT 09:00 → D.SP 09:00
PROVIDERS: Specialist; ATTEND Nurse Practitioner Family
DX: J90 Pleural effusion, not elsewhere classified (principal); E11.9 Type 2 diabetes mellitus without complications; I10 Essential (primary) hypertension; E78.5 Hyperlipidemia, unspecified; Z92.0 Personal history of contraception; Z79.84 Long term (current) use of oral hypoglycemic drugs

== ENCOUNTER → 2020-06-16 17:09 | Outpatient (CLI) | payer MEDICAID ==
[2020-06-15 07:59] VITALS: BMI 29.1
== END | disposition home or self-care (01) ==
LOC: D.RAD 17:09
PROVIDERS: ATTEND Specialist
DX: J90 Pleural effusion, not elsewhere classified (principal)

== ENCOUNTER 2020-07-18 11:06 | Day surgery (SDC) | payer MEDICAID ==
[~2020-07-18] VITALS: Ht 167.6 cm; Wt 78.2 kg
--- NOTE | ~2020-07-18 | HEMODYNAMI ---
PATIENT:DEBBIE FIERRO MEDICAL RECORD: [id number] : 68 LOCATION:[facility] ADMISSION DATE: 07/18/20 Generatedon:07/18/202015:44 Patient name: DEBBIE FIERRO Patient #: [id number] SSN: : 1970 Date of study: 07/18/2020 Page: Of Hemodynamic Procedure Report Patient Data Patient Demographics Procedure consent was obtained First Name: DEBBIE Gender: Female Last Name: VADIM : 1970 Middle Initial: JULIUS Age: 49 year(s) Patient #: [id number] Race: Black Additional ID: [id number] Contact details [address]: [address] [place] [address] State: [place] City: [place] Zip code: [address] Past Medical History Allergies: No known allergies Admission Admission Data Admission Date: 07/18/2020 Admission Time: 12:54 Procedure Procedure Types Cath Procedure Peripheral Cath Diagnostic Procedure Miscellaneous Pleurex Remove Pleurex Pleural Cath Procedure Description Procedure Date Procedure Date: 07/18/2020 Procedure Start Time: 15:27 Procedure Staff Name Function Rashard Hanley MD Performing Physician SADIQ DRUMMOND RT Monitor Elvin Yip RT Scrub Lalita Shin RN Nurse Andrez GRANT RN Nurse Procedure Data Cath Procedure Fluoroscopy Diagnostic fluoroscopy Total fluoroscopy Time: 0.1 time: 0.1 min min Procedure Medications Medication Administration Route Dosage Lidocaine 1% added to field 20 Heparin Flush Bag added to field 1 bags (1000units/500ml NS) Versed I.V. 1 mg Fentanyl I.V. 50 mcg Hemodynamics Rest Heart Rate: 67 (bpm) Snapshots Pre Cath Intra NCS Post Cath Vital Signs Time Heart Resp SPO2 etCO2 NIBP (mmHg) Rhythm Pain Sedation Rate (ipm) (%) (mmHg) Status Level (bpm) 15:10:13 66 19 95 0 147/80(121) NSR 0 (11) 10(A) , No pain 15:14:27 67 27 98 21.7 139/83(125) NSR 0 (11) 10(A) , No pain 15:18:43 65 23 100 24 144/75(115) NSR 0 (11) 10(A) , No pain 15:22:59 66 36 99 21 140/77(109) NSR 0 (11) 10(A) , No pain 15:27:15 66 31 99 24 142/75(116) NSR 0 (11) 10(A) , No pain 15:31:31 67 26 98 28.5 132/76(106) NSR 0 (11) 10(A) , No pain 15:35:43 68 28 99 27.7 142/76(117) NSR 0 (11) 10(A) , No pain 15:39:59 68 27 99 25.5 137/73(114) NSR 0 (11) 10(A) , No pain 15:44:13 68 25 99 24.7 133/74(110) NSR 0 (11) 10(A) , No pain Medications Time Medication Route Dose Verified Delivered Reason Notes Effe ctiveness by by 15:17:37 Lidocaine 1% added 20ml Rashard Wetzel for local to vial Hanley Hanley anesthetic field MD [place] 15:17:46 Heparin Flush added 1 Rashard Wetzel used for Bag to bags Hanley Hanely procedure (1000units/500ml field MD [place] NS) 15:28:50 Versed I.V. 1 mg Rashard Celis for Hanley Kip JOHNSON sedation 15:29:02 Fentanyl I.V. 50 Rashard Celis for mcg Hanley Kip JOHNSON sedation Procedure Log Time Note 15:03:19 Andrez GRANT RN sent for patient. Start room use. 15:03:20 Time tracking: Regular hours (M-F 7:00 - 5:00) 15:03:26 Plan of Care:Hemodynamics will remain stable., Cardiac rhythm will remain stable., Comfort level will be maintained., Respiratory function will remain adequate., Patient/ family verbilizes understanding of procedure., Procedure tolerated without complication., Recovers from procedure without complications.. 15:03:34 Patient received from Outpatients to IR Alert and oriented. Tansferred to table in Supine position. 15:03:36 Signed procedure consent form obtained from patient. 15:03:37 Warm blankets applied, and yuli hugger turned on for patient comfort. 15:03:37 Correct patient and procedure confirmed by team. 15:03:38 ECG and BP/O2 sat monitors applied to patient. 15:03:39 - 15:03:45 H&P Date Dictated: 07/18/2020 ER History on chart.. 15:03:47 Pre-procedure instructions explained to patient. 15:03:47 Pre-op teaching completed and patient verbalized understanding. 15:03:51 Family in waiting room. 15:03:58 Patient allergic to No known allergies 15:04:01 Is the patient allergic to Iodine/contrast media? No. 15:04:05 Patient diabetic? No. 15:04:06 - 15:07:32 ----Pre-sedation anethsthesia assessment.---- 15:07:34 Previous problem with sedation/anesthesia? No ? 15:07:36 Snore? Yes 15:07:38 Sleep apnea? No 15:07:41 Deviated septum? No 15:07:43 Opens mouth fully? Yes 15:07:44 Sticks out tongue? Yes 15:07:48 Airway obstruction? No ? 15:07:51 Dentures? No ? 15:07:53 - 15:08:08 IV patent on arrival in left forearm with 0.45%NaCl at KVO. 15:08:25 Right abdomen area was prepped with chlora-prep and draped in sterile fashion : Alarms reviewed by Tian Miranda :: Sharps counted by scrub and verified by Papi 15::28 - 15:: Vital chart was started 15:: Baseline sample Acquired. 15:: Full Disclosure recording started 15::06 - 15:10:03 Use device set IR Diagnostic 15:10:05 Bag Decanter (2002S) opened to sterile field. 15:10:05 Sterile Angiographic Pack opened to sterile field. 15:10:06 Tegaderm 4 x 4 ([id number]) opened to sterile field. 15:10:32 - 15:10:36 4) 15 Eliane reduced kidney function. 15:17:37 Lidocaine 1% 20ml vial added to field was administered by Rashard Hanley MD; for local anesthetic; Verbal order read back and verified. 15:17:46 Heparin Flush Bag (1000units/500ml NS) 1 bags added to field was administered by Rashard Hanley MD; used for procedure; Verbal order read back and verified. 15:25:24 - 15::29 Physician arrived 15::30 --------ALL STOP TIME OUT------ 15::32 Final Timeout: patient, procedure, and site verified with staff and physician. All members of the team are in agreement. 15::36 Right abdomen site verified by team. 15::39 Fire Safety Assessment: A--An alcohol-based skin anteseptic being used preoperatively., C--Open oxygen or nitrous oxide is being used. 15:26:50 - 15::01 Procedure started. 15::29 PLEURX PROCEDURE MARÍA (50-2103) opened to sterile field. 15:28:50 Versed 1 mg I.V. was administered by Lalita Shin RN; for sedation; Verbal order read back and verified. 15:29:02 Fentanyl 50 mcg I.V. was administered by Lalita Shin RN; for sedation ; Verbal order read back and verified. 15:38:53 ASPIRA PERITONEAL DRAINAGE CATH ([id number]) opened to sterile field. 15:42:20 Procedure ended.(Physican Out) 15:43:18 Fluoroscopy time 00.10 minutes. 15:43:21 Dose Area Product 1 mGy/cm. 15:43:23 Sharps counted by scrub and verified by R.N. 15:43:26 Procedure and supply charges have been captured, reviewed, submitted an d are correct. 15:44:13 Post-op/insertion site Right Abdominal area dressed using a 4 x 4 and Tegaderm. 15:44:18 Post procedure instruction explained to patient.Patient verbalizes understanding. 15:44:20 Vital chart was stopped 15:44:22 See physician's report for complete and final results. 15:44:23 End room use (Document Last) Device Usage Item Name Manufacture Quantity Catalog Hospital Part Current Minimal Lot# / Number Charge Number Stock Stock Serial# Code Bag Decanter Microtek 1 2001S [id number] () [employer] Sterile Cardinal 1 [id number] 5 Angiographic Health Pack Tegaderm 4 x 3M 1 1626W [id number] 5 4 (1626W) PLEURX CareFusion 1 [id number] 1 PROCEDURE MARÍA (64-2349) ASPIRA Merit 1 [id number] [id number] 1 PERITONEAL Medical DRAINAGE CATH ([id number]) ASPIRA Merit 1 [id number] [id number] [id number] 1 DRESSING KIT Medical ([id number] Signature Audit [place] Stage Time Signature Unsigned Intra-Procedure 07/18/2020 SADIQ DRUMMOND RT 3:44:40 PM (R) [facility] [address] [place] [address]
[2020-07-18 11:14] VITALS: BP 132/79
[2020-07-18 13:40] VITALS: Ht 167.6 cm; Wt 78.2 kg
[2020-07-18 13:41] LABS: BASOPHILS 0.1 % (0-2); EOSINOPHILS 0.5 % (0-7); HEMATOCRIT 30.7 % (36.0-48.0); HEMOGLOBIN 9.9 g/dL (12-16); IMMATURE GRANULOCYTES 0.3 % (0-5); LYMPHOCYTES 12.9 % (15-50); MCH 27.3 pg (26.0-34.0); MCHC 32.2 g/dL (31.0-37.0); MCV 84.8 fL (80.0-100.0); MONOCYTES 9.9 % (2-11); NEUTROPHILS 76.3 % (40-80); RBC 3.62 10x6/uL (4.00-5.40); RDW 16.1 % (11.5-14.5); WBC 7.8 10x3/uL (4.8-10.8)
[2020-07-18 13:44] LABS: ANION GAP 16.8 mmol/L (8-16); CALCIUM 8.3 mg/dL (8.5-10.1); CARBON DIOXIDE 19.3 mmol/L (21.0-32.0); CREATININE - SERUM 2.8 mg/dL (0.6-1.3); PLATELET COUNT 123 10x3/uL (130-400); POTASSIUM - SERUM 4.1 mmol/L (3.5-5.1)
[2020-07-18 13:50] LABS: ALBUMIN 2.6 g/dL (3.4-5.0); BILIRUBIN - TOTAL 0.48 mg/dL (0.2-1.3); PROTEIN - SERUM 7.5 g/dL (6.4-8.2)
[2020-07-18 13:59] LABS: INR 1.28 (0.85-1.17); PROTIME 15.9 SECONDS (11.6-15.0)
--- NOTE | 2020-07-18 16:10 | NUR ---
1610 PORT CXR DONE.
--- NOTE | 2020-07-18 16:52 | NUR ---
1600 SEE POST PROCEDURE CHECKLIST FOR VITAL SIGN TRENDS. MARÍA ELENA LOTT GAVE SPOUSE BRIEFING ON ASPIRE CARE AND WHERE TO OBTAIN FUTURE SUPPLIES
== END 2020-07-18 18:05 | disposition home or self-care (01) ==
LOC: D.ER 11:06 → D.SP 12:54
PROVIDERS: Emergency Medicine; ATTEND Specialist
DX: J90 Pleural effusion, not elsewhere classified (principal); K74.60 Unspecified cirrhosis of liver; I10 Essential (primary) hypertension; E11.9 Type 2 diabetes mellitus without complications

== ENCOUNTER 2020-11-22 10:07 | Day surgery (SDC) | payer MEDICAID ==
[~2020-11-22] VITALS: Ht 167.6 cm; Wt 89.5 kg
[~2020-11-22 10:07] MED LIST changes: +AMOXICILLIN875 MG PO
[2020-11-22 10:52] LABS: BASOPHILS 0.1 % (0-2); EOSINOPHILS 0.1 % (0-7); HEMATOCRIT 29.9 % (36.0-48.0); HEMOGLOBIN 9.8 g/dL (12-16); IMMATURE GRANULOCYTES 0.1 % (0-5); LYMPHOCYTE ABS# 0.55 10x3/uL (1.18-3.74); LYMPHOCYTES 7.2 % (15-50); MCH 27.7 pg (26.0-34.0); MCHC 32.8 g/dL (31.0-37.0); MCV 84.5 fL (80.0-100.0); MEAN PLATELET VOLUME 9.6 fL (7.4-10.4); MONOCYTES 6.7 % (2-11); NEUTROPHIL ABS# 6.51 10x3/uL (1.56-6.13); NEUTROPHILS 85.8 % (40-80); RBC 3.54 10x6/uL (4.00-5.40); RDW 14.4 % (11.5-14.5); WBC 7.6 10x3/uL (4.8-10.8)
[2020-11-22 10:54] LABS: PLATELET COUNT 194 10x3/uL (130-400)
[2020-11-22 10:59] LABS: APTT 33.4 SECONDS (22.8-39.4); INR 1.47 (0.85-1.17); PROTIME 16.5 SECONDS (11.6-15.0)
[2020-11-22 11:05] LABS: ALBUMIN 2.8 g/dL (3.4-5.0); ANION GAP 12.4 mmol/L (8-16); BILIRUBIN - TOTAL 0.46 mg/dL (0.2-1.3); CALCIUM 8.8 mg/dL (8.5-10.1); CARBON DIOXIDE 24.6 mmol/L (21.0-32.0); CREATININE - SERUM 3.5 mg/dL (0.6-1.3); PROTEIN - SERUM 8.1 g/dL (6.4-8.2)
[2020-11-22 11:10] VITALS: Ht 167.6 cm; Wt 89.5 kg
[2020-11-22 11:27] LABS: HCG SERUM NEGATIVE (NEGATIVE)
--- NOTE | 2020-11-22 16:46 | NUR ---
1525 IV REMOVED AND INSTRUCTIONS GIVEN.
== END 2020-11-22 16:00 | disposition home or self-care (01) ==
LOC: D.SP 10:07 → D.CT 13:00 → D.SP 16:00
PROVIDERS: Anesthesiology; Radiology Vascular & Interventional Radiology; ATTEND Family Medicine
DX: R18.8 Other ascites (principal)

== ENCOUNTER 2020-12-04 12:00 | Day surgery (SDC) | payer MEDICAID ==
[~2020-12-04] VITALS: Ht 167.6 cm; Wt 76.8 kg
[2020-12-04 12:48] LABS: APTT 32.9 SECONDS (22.8-39.4); INR 1.63 (0.85-1.17); PROTIME 17.9 SECONDS (11.6-15.0)
[2020-12-04 12:51] LABS: ALBUMIN 2.5 g/dL (3.4-5.0); BASOPHILS 0.1 % (0-2); BILIRUBIN - TOTAL 0.89 mg/dL (0.2-1.3); CALCIUM 8.7 mg/dL (8.5-10.1); CARBON DIOXIDE 22.7 mmol/L (21.0-32.0); CREATININE - SERUM 3.6 mg/dL (0.6-1.3); EOSINOPHILS 0 % (0-7); HEMATOCRIT 29.3 % (36.0-48.0); HEMOGLOBIN 9.8 g/dL (12-16); IMMATURE GRANULOCYTES 0.4 % (0-5); LYMPHOCYTE ABS# 0.53 10x3/uL (1.18-3.74); LYMPHOCYTES 3.1 % (15-50); MCH 27.1 pg (26.0-34.0); MCHC 33.4 g/dL (31.0-37.0); MCV 80.9 fL (80.0-100.0); MEAN PLATELET VOLUME 9.6 fL (7.4-10.4); MONOCYTES 5.6 % (2-11); NEUTROPHIL ABS# 15.44 10x3/uL (1.56-6.13); NEUTROPHILS 90.8 % (40-80); POTASSIUM - SERUM 3.7 mmol/L (3.5-5.1); PROTEIN - SERUM 8.1 g/dL (6.4-8.2); RBC 3.62 10x6/uL (4.00-5.40)
[2020-12-04 12:53] VITALS: BP 140/74; Ht 167.6 cm; Wt 76.8 kg
[2020-12-04 12:58] LABS: PLATELET COUNT 236 10x3/uL (130-400)
--- NOTE | 2020-12-04 15:13 | NUR ---
DC INSTRUCTIONS GIVEN TO PT. STATES UNDERSTANDING. DC'D IV CATH FULLY INTACT. WILL DC SHORTLY.
--- NOTE | 2020-12-04 15:19 | NUR ---
PT LEFT UNIT VIA WC AT 0379
== END 2020-12-04 15:19 | disposition home or self-care (01) ==
LOC: D.SP 12:00 → D.CT 14:00 → D.SP 15:19
PROVIDERS: Radiology Diagnostic Radiology; ATTEND Family Medicine
DX: R18.8 Other ascites (principal); M70.72 Other bursitis of hip, left hip; J94.8 Other specified pleural conditions; K74.60 Unspecified cirrhosis of liver; N18.4 Chronic kidney disease, stage 4 (severe)

== ENCOUNTER 2021-01-01 07:48 | Day surgery (SDC) | payer MEDICAID ==
[2021-01-01 08:15] LABS: ANION GAP 11.3 mmol/L (8-16); CALCIUM 8.7 mg/dL (8.5-10.1); CARBON DIOXIDE 26.9 mmol/L (21.0-32.0); CREATININE - SERUM 2.9 mg/dL (0.6-1.3); POTASSIUM - SERUM 4.2 mmol/L (3.5-5.1)
[2021-01-01 08:16] LABS: APTT 29.2 SECONDS (22.8-39.4); INR 1.34 (0.85-1.17); PROTIME 15.3 SECONDS (11.6-15.0)
[2021-01-01 08:18] LABS: BASOPHILS 0.2 % (0-2); EOSINOPHILS 1.4 % (0-7); HEMATOCRIT 26.8 % (36.0-48.0); HEMOGLOBIN 8.5 g/dL (12-16); IMMATURE GRANULOCYTES 0.2 % (0-5); LYMPHOCYTE ABS# 0.58 10x3/uL (1.18-3.74); LYMPHOCYTES 10.3 % (15-50); MCH 26.2 pg (26.0-34.0); MCHC 31.7 g/dL (31.0-37.0); MCV 82.7 fL (80.0-100.0); MEAN PLATELET VOLUME 10.2 fL (7.4-10.4); NEUTROPHIL ABS# 4.54 10x3/uL (1.56-6.13); NEUTROPHILS 80.9 % (40-80); PLATELET COUNT 214 10x3/uL (130-400); RBC 3.24 10x6/uL (4.00-5.40); RDW 15.5 % (11.5-14.5); WBC 5.6 10x3/uL (4.8-10.8)
[2021-01-01 08:31] LABS: ALBUMIN 2.8 g/dL (3.4-5.0); BILIRUBIN - TOTAL 0.33 mg/dL (0.2-1.3); PROTEIN - SERUM 8.3 g/dL (6.4-8.2)
== END 2021-01-01 11:25 | disposition home or self-care (01) ==
LOC: D.CT 07:48
PROVIDERS: General Practice
DX: R18.8 Other ascites (principal); K74.60 Unspecified cirrhosis of liver